=== PATIENT | female | born 2000 | race Caucasian/White ===

== ENCOUNTER 2018-05-11 22:25 | Emergency (ER) | payer SELFPAY ==
[2018-05-11 22:49] LABS: Bilirubin Negative (Negative); Blood, Urine Small (Negative); Clarity Cloudy (Clear); Glucose, Urine (Dipstick) Negative (Negative); Leukocyte Negative (Negative); Nitrite Negative (Negative); Pregu Control Background? CLEAR/WHITE (CLR/WHITE); Pregu Control Bar Appear? YES (CONTROL BAR); Protein, Urine (Dipstick) Negative (Neg-Trace); Specific Gravity 1.025 (1.002-1.036); Specific Gravity, Urine 1.025 (1.005-1.030); Urobilinogen 0.2 mg/dL (0.2-1.0)
[2018-05-11 22:50] LABS: Pregnancy Test - Urine (BHCG) Negative (Negative)
[2018-05-11 23:06] LABS: Bacteria/HPF 1+ HPF (None Seen); Hyaline Casts/LPF NONE SEEN LPF (0-3 Hyaline); Squamous Epithelial 0-3 HPF (0-3); WBC/HPF 0-3 HPF (0-3)
[2018-05-11 23:07] LABS: Crystals/HPF 3+ AMORPH URATES HPF (Negative)
--- NOTE | 2018-05-11 23:08 | RAD ---
RIGHT FOREARM TWO VIEWS: History: trauma to forearm. FINDINGS: No signs of fracture or dislocation. IMPRESSION: Negative right forearm. POS: [facility]
--- NOTE | 2018-05-11 23:21 | RAD ---
RIGHT HAND THREE VIEWS: History: Trauma to hand. FINDINGS: There are no signs of fracture or dislocation. IMPRESSION: Negative right hand. POS: [facility]
== END 2018-05-11 23:18 | disposition home or self-care (01) ==
LOC: SCSER 22:25
DX: S69.91XA Unspecified injury of right wrist, hand and finger(s), initial encounter (principal); W22.01XA Walked into wall, initial encounter
CPT/HCPCS: 81003; 81015; 81025; 87086

== ENCOUNTER 2018-06-13 15:09 | Emergency (ER) | payer SELFPAY ==
[2018-06-13 15:38] LABS: #Basophils 0.1 thou/uL (0.0-0.2); #Eosinphils 0.3 thou/uL (0.0-0.7); #Lymphocytes 2.7 thou/uL (1.20-3.40); #Monocytes 0.7 thou/uL (0.11-0.59); %Basophils 0.8 % (0.0-1.0); %Eosinophils 3.1 % (0.0-10.0); %Lymphocytes 30.9 % (28.0-48.0); %Monocytes 7.8 % (0.0-4.0); %Neutrophils 57.3 % (31.0-61.0); Hemoglobin 14.5 g/dL (12.0-16.0); Mean Corpuscular HGB CONC 33.1 g/dL (32.0-36.0); Mean Corpuscular Volume 90.7 fL (78.0-98.0); Mean Platelet Volume 7.1 fL (7.4-10.4); Platelet Count 257 thou/uL (130-400); RBC Distribution Width 11.8 % (11.5-14.5); Red Blood Cell (RBC) Count 4.84 mill/uL (4.00-5.20); White Blood Cell (WBC) Count 8.7 thou/uL (4.8-10.8)
[2018-06-13 15:50] LABS: Pregnancy Test - Urine (BHCG) Negative (Negative); Pregu Control Background? CLEAR/WHITE (CLR/WHITE); Pregu Control Bar Appear? YES (CONTROL BAR); Specific Gravity 1.012 (1.002-1.036)
[2018-06-13 15:58] LABS: ALT (SGPT) 50 U/L (8-55); AST (SGOT) 28 U/L (5-30); Albumin 4.5 g/dL (3.5-5.0); Alkaline Phosphatase 84 U/L (40-150); Anion Gap 11 mmol/L (10-20); BUN (Urea Nitrogen) 13 mg/dL (8.4-21.0); Bilirubin, Total 0.4 mg/dL (0.2-1.2); Calc. Creatinine Clearance 0 mL/min (70-130); Calcium 9.3 mg/dL (7.8-10.44); Carbon Dioxide 26 mmol/L (22-29); Chloride 105 mmol/L (98-107); Estimated GFR-MDRD Greater than 90; Globulin 2.9 g/dL (2.4-3.5); Glucose 88 mg/dL (70-105); Potassium 3.8 mmol/L (3.5-5.1); Protein, Total 7.4 g/dL (6.0-8.3); Sodium 138 mmol/L (136-145)
[2018-06-13 16:02] LABS: Bilirubin Negative (Negative); Blood, Urine Negative (Negative); Clarity CLEAR (Clear); Glucose, Urine (Dipstick) Negative (Negative); Leukocyte Negative (Negative); Nitrite Negative (Negative); Protein, Urine (Dipstick) Negative (Neg-Trace); Specific Gravity, Urine 1.011 (1.002-1.036); Urobilinogen 0.2 mg/dL (0.2-1.0); pH, Urine 7.5 (5.0-9.0)
[2018-06-13] MEDS ORDERED: Acetaminophen 500 MG TAB ONE (16:53)
--- NOTE | 2018-06-13 20:32 | ULT ---
PELVIC ULTRASOUND: 06/13/2018 HISTORY: Irregular periods. History of right ovarian cyst. COMPARISON: None. TECHNIQUE: Multiplanar lentz-scale sonographic imaging of the pelvis is obtained with transabdominal and endovagi nal imaging. The ovaries are assessed with color-flow and spectral analysis. FINDINGS: No significant free fluid is seen in the pelvis. The uterus measures 5.9 x 2.9 x 4.2 cm, with a norm al endometrial stripe of approximately 5 mm. The right ovary measures approximately 4 x 2.1 x 1.9 cm and demonstrates internal blood flow. There is a questionable subtle complex/hemorrhagic cyst associated with the right ovary, measuring in the 1 .8 x 1.2 cm range. The left ovary measures 2.2 x 1.1 x 1.5 cm and demonstrates normal blood flow wit hout evidence for mass. IMPRESSION: No acute findings. Questionable small, complex/hemorrhagic cyst of the right ovary. POS: [facility]
== END 2018-06-13 18:26 | disposition home or self-care (01) ==
LOC: ERS 15:09
DX: N83.201 Unspecified ovarian cyst, right side (principal); F41.9 Anxiety disorder, unspecified; F32.9 Major depressive disorder, single episode, unspecified; F17.210 Nicotine dependence, cigarettes, uncomplicated; I49.9 Cardiac arrhythmia, unspecified
CPT/HCPCS: 36415; 76856; 80053; 81003; 81025; 85025; 86900; 86901

== ENCOUNTER 2018-10-20 01:51 | Emergency (ER) | payer SELFPAY ==
[2018-10-20 02:26] LABS: #Basophils 0.1 thou/uL (0.0-0.2); #Eosinphils 0.2 thou/uL (0.0-0.7); #Lymphocytes 2.8 thou/uL (1.20-3.40); #Neutrophils 2.7 thou/uL (1.40-6.50); %Basophils 0.9 % (0.0-1.0); %Eosinophils 3.1 % (0.0-10.0); %Lymphocytes 41.5 % (28.0-48.0); %Monocytes 14.3 % (0.0-4.0); %Neutrophils 40.2 % (31.0-61.0); Hemoglobin 14.7 g/dL (12.0-16.0); Mean Corpuscular HGB CONC 33.8 g/dL (32.0-36.0); Mean Corpuscular Hemoglobin 30.2 pg (25.0-35.0); Mean Corpuscular Volume 89.4 fL (78.0-98.0); Mean Platelet Volume 7.9 fL (7.4-10.4); Platelet Count 193 thou/uL (130-400); Red Blood Cell (RBC) Count 4.86 mill/uL (4.00-5.20); White Blood Cell (WBC) Count 6.7 thou/uL (4.8-10.8)
[2018-10-20 02:48] LABS: ALT (SGPT) 49 U/L (8-55); AST (SGOT) 26 U/L (5-30); Albumin 4.4 g/dL (3.5-5.0); Alkaline Phosphatase 88 U/L (40-150); Anion Gap 13 mmol/L (10-20); BUN (Urea Nitrogen) 12 mg/dL (8.4-21.0); Bilirubin, Total 0.3 mg/dL (0.2-1.2); Calc. Creatinine Clearance 0 mL/min (70-130); Calcium 9.4 mg/dL (7.8-10.44); Carbon Dioxide 24 mmol/L (22-29); Chloride 103 mmol/L (98-107); Estimated GFR-MDRD Greater than 90; Globulin 3.1 g/dL (2.4-3.5); Glucose 96 mg/dL (70-105); Potassium 3.4 mmol/L (3.5-5.1); Protein, Total 7.5 g/dL (6.0-8.3); Sodium 137 mmol/L (136-145)
[2018-10-20 03:47] LABS: Bilirubin Negative (Negative); Blood, Urine Negative (Negative); Clarity CLEAR (Clear); Glucose, Urine (Dipstick) Negative (Negative); Leukocyte Negative (Negative); Nitrite Negative (Negative); Protein, Urine (Dipstick) Negative (Neg-Trace); Specific Gravity, Urine 1.011 (1.002-1.036); Urobilinogen 0.2 mg/dL (0.2-1.0)
[2018-10-20 03:48] LABS: Pregnancy Test - Urine (BHCG) Negative (Negative); Pregu Control Background? CLEAR/WHITE (CLR/WHITE); Pregu Control Bar Appear? YES (CONTROL BAR); Specific Gravity 1.011 (1.002-1.036)
[2018-10-20] MEDS ORDERED: Ketorolac Tromethamine 30 MG/ML VIAL ONE (05:40)
--- NOTE | 2018-10-20 08:14 | RAD ---
2 VIEWS CHEST: Date: 10/20/18 COMPARISON: None. HISTORY: Dyspnea. FINDINGS: Two views of the chest show normal sized cardiomediastinal silhouette. There is no evidence of consol idation, mass, or pleural effusion. There is scoliotic curvature of the spine. IMPRESSION: No evidence of acute cardiopulmonary disease. POS: [facility]
== END 2018-10-20 05:50 | disposition home or self-care (01) ==
LOC: ERS 01:51
DX: J18.9 Pneumonia, unspecified organism (principal); F31.9 Bipolar disorder, unspecified; F41.9 Anxiety disorder, unspecified; F17.210 Nicotine dependence, cigarettes, uncomplicated
CPT/HCPCS: 36415; 71046; 80053; 81003; 81025; 85025; 87081; 87430; 87804; 93005; 96374; J1885

== ENCOUNTER 2018-11-05 02:18 | Emergency (ER) | payer SELFPAY ==
[2018-11-05 02:57] LABS: Bilirubin Negative (Negative); Blood, Urine Negative (Negative); Clarity CLEAR (Clear); Glucose, Urine (Dipstick) Negative (Negative); Leukocyte Negative (Negative); Nitrite Negative (Negative); Protein, Urine (Dipstick) Negative (Neg-Trace); Specific Gravity, Urine 1.016 (1.002-1.036); Urobilinogen 0.2 mg/dL (0.2-1.0)
[2018-11-05 02:58] LABS: Pregnancy Test - Urine (BHCG) Negative (Negative); Pregu Control Background? CLEAR/WHITE (CLR/WHITE); Pregu Control Bar Appear? YES (CONTROL BAR); Specific Gravity 1.016 (1.002-1.036)
== END 2018-11-05 03:32 | disposition home or self-care (01) ==
LOC: ERS 02:18
DX: N92.5 Other specified irregular menstruation (principal); F31.9 Bipolar disorder, unspecified; F41.9 Anxiety disorder, unspecified; F17.210 Nicotine dependence, cigarettes, uncomplicated
CPT/HCPCS: 81003; 81025; 99283

== ENCOUNTER 2018-12-15 09:38 | Emergency (ER) | payer SELFPAY ==
[2018-12-15 10:28] LABS: Pregnancy Test - Urine (BHCG) Negative (Negative); Pregu Control Background? CLEAR/WHITE (CLR/WHITE); Pregu Control Bar Appear? YES (CONTROL BAR); Specific Gravity 1.004 (1.002-1.036)
[2018-12-15] MEDS ORDERED: Acetaminophen 500 MG TAB ONE (10:32)
[2018-12-15] MEDS ORDERED: Bicillin LA 1.2 MILLION UNITS/2 ML SYRINGE ONE (10:52)
== END 2018-12-15 11:27 | disposition home or self-care (01) ==
LOC: ERS 09:38
DX: J02.0 Streptococcal pharyngitis (principal); F41.9 Anxiety disorder, unspecified; F31.9 Bipolar disorder, unspecified; F17.210 Nicotine dependence, cigarettes, uncomplicated
CPT/HCPCS: 81025; 87081; 87430; 96372; J0561

== ENCOUNTER 2019-02-27 23:08 | Emergency (ER) | payer SELFPAY ==
[2019-02-28 00:07] LABS: #Basophils 0.1 thou/uL (0.0-0.2); #Eosinphils 0.3 thou/uL (0.0-0.7); #Lymphocytes 3.5 thou/uL (1.20-3.40); #Monocytes 0.7 thou/uL (0.11-0.59); #Neutrophils 4.8 thou/uL (1.40-6.50); %Basophils 0.7 % (0.0-1.0); %Lymphocytes 37.6 % (28.0-48.0); %Monocytes 7.2 % (0.0-4.0); %Neutrophils 51.5 % (31.0-61.0); Hemoglobin 14.2 g/dL (12.0-16.0); Mean Corpuscular HGB CONC 36.3 g/dL (32.0-36.0); Mean Corpuscular Hemoglobin 31.2 pg (25.0-35.0); Mean Corpuscular Volume 85.9 fL (78.0-98.0); Mean Platelet Volume 7.8 fL (7.4-10.4); Platelet Count 240 thou/uL (130-400); RBC Distribution Width 12.1 % (11.5-14.5); Red Blood Cell (RBC) Count 4.57 mill/uL (4.00-5.20); White Blood Cell (WBC) Count 9.2 thou/uL (4.8-10.8)
[2019-02-28 00:14] LABS: BHCG - Serum Negative (NEGATIVE); Pregs Control Background? CLEAR/WHITE (CLR/WHITE); Pregs Control Bar Appear? YES (CONTROL BAR)
[2019-03-01 00:06] LABS: Chlamydia by PCR Not Detected (NotDetected); GC by PCR Not Detected (NotDetected)
== END 2019-02-28 00:40 | disposition home or self-care (01) ==
LOC: ERS 23:08
DX: N93.9 Abnormal uterine and vaginal bleeding, unspecified (principal); I49.9 Cardiac arrhythmia, unspecified; F31.9 Bipolar disorder, unspecified; F41.9 Anxiety disorder, unspecified; F17.210 Nicotine dependence, cigarettes, uncomplicated
CPT/HCPCS: 36415; 84703; 85025; 87480; 87491; 87510; 87591; 87660; 99283